=== PATIENT | female | born 1965 | race Caucasian/White ===

== ENCOUNTER 2024-06-09 11:20 | Emergency (ER) | payer MEDICAID, SELFPAY ==
[2024-06-09 11:35] VITALS: BP 187/125; PULSE 70; RESP 18; TEMP 36.5; O2SAT 96; BMI 29.6
--- NOTE | 2024-06-09 11:46 | PD.EDRME ---
Rapid Medical Screening Exam RME Arrival date/time: 06/09/24 11:20 58-year-old female with history of hypertension on multiple medications presents to the emergency department today stating she was at her primary care doctor today and they referred her to the ER for elevated blood pressure. Patient reports no headache no dizziness no chest pain or shortness of breath Chief Complaint: General Adult/Misc Complain Vital signs: Vital Signs Temperature 97.7 F 06/09/24 11:35 Pulse Rate 70 06/09/24 11:35 Respiratory Rate 18 06/09/24 11:35 Blood Pressure 187/125 H 06/09/24 11:35 Pulse Oximetry (%) 96 06/09/24 11:35 Oxygen Delivery Method Room Air 06/09/24 11:35
[2024-06-09 11:50] VITALS: BP 187/125; PULSE 70
[2024-06-09] MEDS: NIFEdipine 10 MG CAPSULE 20 MG PO (11:50)
[2024-06-09 12:31] LABS: Basophils # (Auto) 0.1 Thou/mm3 (0.0-0.2); Basophils % (Auto) 1 % (0-2.5); Eosinophils # (Auto) 0.1 Thou/mm3 (0.0-0.5); Eosinophils % (Auto) 2 % (0-10); Hematocrit 47.2 % (36.0-46.0); Hemoglobin 15.6 g/dL (12.0-16.0); Immature Granulocytes % (Auto) 0 % (0-0); Immature Granulocytes Auto 0.03 Thou/mm3 (0.00-0.00); Lymphocytes # (Auto) 1.9 Thou/mm3 (1.0-4.8); Lymphocytes % (Auto) 23 % (10-50); Mean Corpuscular HGB Conc 33.1 g/dl (31.0-37.0); Mean Corpuscular Hemoglobin 28.9 pg (25.0-35.0); Mean Corpuscular Volume 87 fL (80-100); Monocytes # (Auto) 0.7 Thou/mm3 (0.0-0.8); Monocytes % (Auto) 9 % (0-12); Neutrophils # (Auto) 5.2 Thou/mm3 (1.8-7.7); Neutrophils % (Auto) 65 % (37-80); Nucleated Red Blood Cell % 0 /100 WBC (0); Platelet Count 242 Thou/mm3 (140-440); RDW Standard Deviation 39.4 fL (36.4-46.3); White Blood Count 8.1 Thou/mm3 (3.6-11.0)
[2024-06-09 12:45] VITALS: BP 111/71
[2024-06-09 12:50] LABS: Alanine Aminotransferase 17 U/L (10-49); Albumin, Serum 4.5 gm/dL (3.4-4.8); Albumin/Globulin Ratio 1.7 (1.2-2.2); Alkaline Phosphatase 116 U/L (46-116); Anion Gap 10 (7-16); Aspartate Amino Transferase 17 U/L (0-34); BUN/Creatinine Ratio 20 Ratio (12-20); Bilirubin,Total 0.5 mg/dL (0.3-1.2); Blood Urea Nitrogen 18 mg/dL (9-23); Calcium 9.7 mg/dL (8.3-10.6); Calcium (Corrected) 9.7 mg/dL (8.5-10.1); Carbon Dioxide 27.1 mMol/L (20.0-31.0); Chloride 101 mMol/L (98-107); Creatinine (Component) 0.9 mg/dL (0.6-1.3); Estimated Creatinine Clearance 72.3 mL/min (>60); Globulin 2.6 gm/dL (2.3-3.5); Glucose 112 mg/dL (74-106); Osmolality,Calculated 278 (275-295); Potassium 3.7 mMol/L (3.4-5.1); Sodium 138 mMol/L (136-145); Total Protein 7.1 gm/dL (5.7-8.2); eGFR > 60 See Note
--- NOTE | 2024-06-09 14:07 | EDNOTE_ITS ---
ED General RME/HPI General Chief complaint: General Adult/Misc Complain Stated complaint: SENT BY PRIMARY FOR HTN Time Seen by Provider: 06/09/24 12:52 Arrival date/time: 06/09/24 11:20 58-year-old female with history of hypertension on multiple medications presents to the emergency department today stating she was at her primary care doctor today and they referred her to the ER for elevated blood pressure. Patient reports no headache no dizziness no chest pain or shortness of breath Limitations: no limitations RME / HPI RME / HPI narrative: 06/09/24 11:20 58-year-old female with history of hypertension on multiple medications presents to the emergency department today stating she was at her primary care doctor today and they referred her to the ER for elevated blood pressure. Patient reports no headache no dizziness no chest pain or shortness of breath Related Data Home Medications ?Medication ?Instructions ?Recorded ?Confirmed carvedilol 12.5 mg tablet 25 mg PO DAILY 08/01/2102/21 gabapentin 300 mg capsule 300 mg PO TID PRN Pain 08/0103/12/22 Previous Rx's ?Medication ?Instructions ?Recorded pantoprazole 40 mg tablet,delayed 40 mg PO BID #60 tab s 03/13/22 release (Protonix) Allergies Allergy/AdvReac Type Severity Reaction Status Date / Time ibuprofen AdvReac Severe DUE TO Verified 06/09/24 11:23 HTN,BREAST CA Review of Systems Review of Systems Systems Reviewed: All systems reviewed, normal except as documented Constitutional Constitutional: Reports system reviewed and no additional complaints, except as documented, Denies fever(s) and Denies headache(s) Eyes Eyes: Reports system reviewed and no additional complaints, except as documented and Denies blurry vision ENT Ears, Nose, Mouth, and Throat: Reports system reviewed and no additional complaints, except as documented, Denies headache(s), Denies nasal congestion and Denies nasal discharge Cardiovascular Cardiovascular: Reports system reviewed and no additional complaints, except as documented, Denies chest pain and Denies dyspnea Respiratory Respiratory: Reports system reviewed and no additional complaints, except as documented, Denies chest congestion, Denies cough and Denies dyspnea Gastrointestinal Gastrointestinal: Reports system reviewed and no additional complaints, except as documented and Denies abdominal pain Integumentary/Breasts Skin/Breast: Reports system reviewed and no additional complaints, except as documented and Denies rash Neurologic Neurologic: Reports system reviewed and no additional complaints, except as documented, Reports as per HPI and Denies headache(s) Past Medical History Past Medical History NEUROLOGIC: Negative Neurological Disorders or Seizures CARDIAC: Positive Cardiac Disorders and Hypertension; Negative Congestive Heart Failure RESPIRATORY: Positive Tuberculosis; Negative Chronic Obstructive Pulmonary Disease (COPD), Asthma or Sleep Apnea GASTROINTESTINAL: Positive Gastrointestinal Disorders, Rosa's Esophagus and Gastroesophageal Reflux Disease GENITOURINARY: Negative Genitourinary Disorders or Renal Disease REPRODUCTIVE: Positive Breast Cancer (Left. Lymph nodes removed) and Previous Pregnancies MUSCULOSKELETAL: Positive Musculoskeletal Disorders (Right BKA) and Arthritis ENDOCRINE: Negative Diabetes Mellitus Type 1 or Diabetes Mellitus Type 2 HEMATOLOGIC: Negative Blood Disorders or Sickle Cell Disease OTHER HISTORY: Positive Chicken Pox and Breast Cancer (Left. Lymph nodes removed); Negative Autoimmune Disease, Blood Transfusions or Anesthesia Reactions Surgical History SURGICAL: Positive Amputation (RT BKA), Open Reduction Internal Fixation, Lumpectomy (Left breast), Hysterectomy (Left 2nd toe) and Tubal Ligation Social History SMOKING STATUS: Never smoker ED Exam General Limitations: Present no limitations General appearance: Present alert and in no apparent distress Head Head exam: Present atraumatic Eye Eye exam: Present normal appearance, PERRL and EOMI ENT ENT exam: Present normal exam, normal oropharynx and mucous membranes moist Neck Neck exam: Present normal inspection, full ROM and trachea midline Chest Chest inspection: Present normal inspection and symmetric chest wall rise Respiratory Respiratory exam: Present normal lung sounds bilaterally Cardiovascular Cardiovascular exam: Present regular rate, normal rhythm and normal heart sounds Abdominal Exam Abdominal exam: Present soft and normal bowel sounds Extremities Exam Extremities exam: Present normal inspection and full ROM Back Exam Back exam: Present normal inspection and full ROM Neurological Exam Neurological exam: Present alert, oriented X3 and CN II-XII intact Psychiatric Psychiatric exam: Present normal affect and normal mood Skin Skin exam: Present warm, dry, intact and normal color Course Quality Measures none Orders Category Date Time Status CBC Stat Lab 06/09/24 11:56 Completed CMP [Comprehensive Metabolic Panel] Stat Lab 06/09/24 11:56 Completed NIFEdipine [Procardia] Med 06/09/24 11:43 Discontinued 20 mg PO X1 ONE Vital Signs Vital signs: Vital Signs Temperature 97.7 F 06/09/24 11:35 Pulse Rate 70 06/09/24 11:35 Respiratory Rate 18 06/09/24 11:35 Blood Pressure 187/125 H 06/09/24 11:35 Pulse Oximetry (%) 96 06/09/24 11:35 Oxygen Delivery Method Room Air 06/09/24 11:35 O2 saturation 96% on room air within normal limits MDM Patient data External records reviewed:: [facility] previous records Clinical information provided by:: patient Social determinants that could affect healthcare access:: none Patient has the following chronic illnesses:: None How is presenting disease/condition affected by chronic disease/condition?: no chronic disease Evaluation data The following diagnostics were reviewed and interpreted by me:: lab results Lab and/or radiology exams considered but not ordered:: Lab Interpretation Summary: Reviewed by me Medications Medications considered but not ordered:: Given Medication administrations:: Medication Administration History Discontinued Medications Nifedipine (Nifedipine 10 Mg Capsule) 20 mg PO X1 ONE Stop: 06/09/24 11:44 Last Admin: 06/09/24 11:50 Dose: 20 mg Documented By: DB Given Consultations Consultation(s) initiated? (list below): No Diagnosis Differential Diagnosis ED Complaint MDM: Hypertension, asymptomatic hypertension Most likely diagnosis given after review of the tests above:: Asymptomatic hypertension Admission Indicated Admission indicated?: not indicated Explain why admission is indicated or not indicated:: No criteria Admission Request Was there a request for admission?: No Disposition Plan Disposition Plan: Discharge Discharge Attestation Discharge Attestation: The patient and all family members were given an opportunity to ask questions and understood the discharge instructions. Discharge instructions specifically effects, indications for sooner follow up or return to the emergency department, and the expected course of current diagnosis. Patient condition: Stable Medical Decision Making MDM Narrative MDM Narrative: 58-year-old female with history of hypertension on multiple medications presents to the emergency department today stating she was at her primary care doctor today and they referred her to the ER for elevated blood pressure. Patient reports no headache no dizziness no chest pain or shortness of breath On exam patient well-appearing patient does not appear ill or toxic patient does not appear in acute distress Lab work obtained and is unremarkable Patient was given Procardia here in the emergency department patient's blood pressure is now normal At time reevaluation patient reports that she feels well has no chest pain or shortness of breath no headache dizziness or weakness Patient walks with steady gait Patient discharged home in no distress to follow-up with primary care doctor in the next 24 to 48 hours and for any worsening symptoms to return to the ER immediately Differential Diagnosis Differential Diagnosis: Hypertension, asymptomatic hypertension Medical Records Medical records reviewed: Yes I reviewed the patient's medical records. Lab Data Lab results reviewed: Yes I reviewed the patient's lab results. 06/09/24 11:56 06/09/24 11:56 Labs: Lab Results 06/09/24 Range/Units 11:56 WBC 8.1 (3.6-11.0) Thou/mm3 RBC 5.40 H (4.00-5.20) Miln/mm3 Hgb 15.6 (12.0-16.0) g/dL Hct 47.2 H (36.0-46.0) % MCV 87 (80-100) fL MCH 28.9 (25.0-35.0) pg MCHC 33.1 (31.0-37.0) g/dl RDW Std Deviation 39.4 (36.4-46.3) fL Plt Count 242 (140-440) Thou/mm3 Neut % (Auto) 65 (37-80) % Lymph % (Auto) 23 (10-50) % [place] % (Auto) 9 (0-12) % Eos % (Auto) 2 (0-10) % Baso % (Auto) 1 (0-2.5) % Neut # (Auto) 5.2 (1.8-7.7) Thou/mm3 Lymph # (Auto) 1.9 (1.0-4.8) Thou/mm3 [place] # (Auto) 0.7 (0.0-0.8) Thou/mm3 Eos # (Auto) 0.1 (0.0-0.5) Thou/mm3 Baso # (Auto) 0.1 (0.0-0.2) Thou/mm3 Immature Gran # (Auto) 0.03 H (0.00-0.00) Thou/mm3 Absolute Nucleated RBC 0.00 (0.00-0.00) Thou/mm3 Immature Gran % 0 (0-0) % Nucleated RBC % 0 (0) /100 WBC Sodium 138 (136-145) mMol/L Potassium 3.7 (3.4-5.1) mMol/L Chloride 101 (98-107) mMol/L Carbon Dioxide 27.1 (20.0-31.0) mMol/L Anion Gap 10 (7-16) BUN 18 (9-23) mg/dL Creatinine 0.9 (0.6-1.3) mg/dL Estim Creat Clear Calc 72.3 (>60) mL/min eGFR > 60 (60 - ) See Note BUN/Creatinine Ratio 20 (12-20) Ratio Glucose 112 H (74-106) mg/dL Calculated Osmolality 278 (275-295) Calcium 9.7 (8.3-10.6) mg/dL Corrected Calcium 9.7 (8.5-10.1) mg/dL Total Bilirubin 0.5 (0.3-1.2) mg/dL AST 17 (0-34) U/L ALT 17 (10-49) U/L Alkaline Phosphatase 116 (46-116) U/L Total Protein 7.1 (5.7-8.2) gm/dL Albumin 4.5 (3.4-4.8) gm/dL Globulin 2.6 (2.3-3.5) gm/dL Albumin/Globulin Ratio 1.7 (1.2-2.2) Discharge Plan Plan Patient Disposition: HOME (Self Care) Disposition Comment: Stable Prescriptions/Referrals Prescriptions/Med Rec: No Action carvedilol 12.5 mg tablet 25 mg PO DAILY Patient Comments: TAKE 1 TABLET BY MOUTH TWICE A DAY WITH FOOD FOR 90 DAYS gabapentin 300 mg capsule 300 mg PO TID PRN (Reason: Pain) Patient Comments: TAKE 1 CAPSULE BY MOUTH TWICE A DAY pantoprazole [Protonix] 40 mg Tablet,Delayed Release (Dr/Ec) 40 mg PO BID Qty: 60 2RF Rx Instructions: take 1 tablet by mouth twice daily Referrals: Rory Lima MD [Primary Care Provider] - In 1 week Problem List Clinical Impression: Hypertension, Asymptomatic hypertension Patient/Caregiver Discharge Instructions Education Materials: ED High Blood Pressure ... Additional Instructions: Please follow up with your primary care doctor in the next 24-48hrs for any worsening symptoms return here immediately The medication you were given in the ER is Procardia Print Language: Turkish Stand Alone Forms: Lavonne Award Info., Patient Portal Info Letter PA/[employer] Supervising Physician PA/[employer] Supervising Physician: Dr Magaña
== END 2024-06-09 14:19 | disposition home or self-care (01) ==
PROVIDERS: Nurse Practitioner Primary Care; Emergency Provider Emergency Medicine; PCP Internal Medicine
DX: I10 Essential (primary) hypertension (principal)
CPT/HCPCS: 36415; 80053; 85025; 99283; A9270

== ENCOUNTER 2024-10-25 11:09 | Emergency (ER) | payer MEDICAID, SELFPAY ==
[2024-10-25] VITALS (10 sets, daily range): BP systolic 117–232; BP diastolic 68–127; PULSE 60–98; RESP 14–19; TEMP 36.6–37; O2SAT 95–99; BMI 29.7
--- NOTE | 2024-10-25 | XR_ITS ---
Examination: MRI lumbar spine without contrast Date and time of exam: October 25, [address] lumbar spine October 25, 2024 INDICATIONS: Low back pain radiating down the right leg after fall 5 days ago Technique: Multiple MRI axial and sagittal sections lumbar spine. Sagittal T2-weighted images, TR 3500, TE 118 T1 weighted transverse sections, TR 688 T8.5, T2-weighted sagittal sections T1 weighted sagittal sections TR 621, TE 30 T2 axial sections, TR 4, 190, TE 84. Findings: Acute compression fracture L3 vertebral body, depression superior endplate, reduction in height approximately 40% Retropulsion of the posterior margin of this vertebral body 11 mm impinging upon the L4 right nerve root Remaining lumbar vertebral bodies intact Normal position conus medullaris IMPRESSION: Acute compression fracture L3 vertebral body, prominent retropulsion of the posterior margin of this vertebral body 11 mm impinging upon the right L4 nerve root
--- NOTE | 2024-10-25 11:35 | EKG_ITS ---
[facility] Test Date: 2024-10-25 Pat Name: BENNIE LEE Department: Room: - Gender: Female [employer]: : [id number] Requested By: Jessica Mina Order Number: [id number] Reading MD: Jessica Mina Measurements Intervals Howard Rate: 67 P: -7 NH: 100 QRS: 55 QRSD: 97 T: 71 QT: 436 QTc: 463 Interpretive Statements SINUS RHYTHM WITH SHORT NH INTERVAL LEFT VENTRICULAR HYPERTROPHY AND ST-T CHANGE [VOLTAGE CRITERIA PLUS ST/T ABNORMALITY] Compared to ECG 03/12/2022 07:19:47 Short NH interval now present ST (T wave) deviation still present /store/S0/[id number]
--- NOTE | 2024-10-25 11:44 | PD.EDBACK ---
ED Back Injury Pain RME/HPI General Chief Complaint: Back Pain/Injury Stated Complaint: back pain Time Seen by Provider: 10/25/24 11:23 Arrival date/time: 10/25/24 11:09 RME / HPI RME / HPI Narrative: 58 year old female presents to the ED BIBA from home for evaluation of lower back pain that radiates down her right leg after ground level fall 5 days ago. States she had been drinking 5 days ago and while moving a chair up a ramp into her home, she lost her footing and fell. States she doesn't recall much on what side she landed on during her fall. Reportedly was evaluated at [facility] the day she fell and had imaging performed showing no fractures and discharged home. States her pain has gradually worsened, now rating as severe. Aggravated with movements and minimally improved with immobilization. Denies any new falls/injuries. No other associated symptoms or complaints reported. Related Data Home Medications ?Medication ?Instructions ?Recorded ?Confirmed carvedilol 12.5 mg tablet 25 mg PO DAILY 08/01/21 03/13/22 gabapentin 300 mg capsule 300 mg PO TID PRN Pain 08/01/21 03/12/22 Previous Rx's ?Medication ?Instructions ?Recorded pantoprazole 40 mg tablet,delayed 40 mg PO BID #60 tabs 03/13/22 release (Protonix) Allergies Allergy/AdvReac Type Severity Reaction Status Date / Time ibuprofen AdvReac Severe DUE TO Verified 10/25/24 11:15 HTN,BREAST CA Review of Systems Review of Systems Systems Reviewed: All systems reviewed, normal except as documented Past Medical History Past Medical History CARDIAC: Positive Cardiac Disorders and Hypertension RESPIRATORY: Positive Tuberculosis GASTROINTESTINAL: Positive Gastrointestinal Disorders, Rosa's Esophagus and Gastroesophageal Reflux Disease REPRODUCTIVE: Positive Breast Cancer and Previous Pregnancies MUSCULOSKELETAL: Positive Musculoskeletal Disorders and Arthritis OTHER HISTORY: Positive Chicken Pox and Breast Cancer Surgical History SURGICAL: Positive Amputation, Open Reduction Internal Fixation, Lumpectomy, Hysterectomy and Tubal Ligation Social History SMOKING STATUS: Never smoker ED Exam Narrative Physical exam: GENERAL APPEARANCE: alert and oriented x 4, well-developed, well-nourished, no acute distress HEENT: Normocephalic, atraumatic; pupils equal, round, reactive to light; EOMI; mucous membranes pink, moist; oropharynx clear NECK: Supple LUNGS: CTABL; no wheezes, no rales, no rhonchi HEART: Regular rate, regular rhythm; normal S1, S2; no murmurs ABDOMEN: non distended; normal BS; soft, no tenderness, no guarding, no rebound; no masses, no organomegaly, no hernia BACK: no CVA tenderness EXTREMITIES: Right BKA; no edema NEUROLOGIC: awake; alert and oriented x4; cranial nerves II-XII grossly intact; no focal sensory or motor deficits PSYCHIATRIC: appropriate mood and affect SKIN: warm, dry, normal color; no rashes Course Course Course Narrative: 1650: RN reports patient was able to stand though complains of pain. 1706: I spoke with transfer nurse and aware of request to consult with neurosurgeon at [facility]. 1740: I spoke with neurosurgeon Dr. Lozano at [facility]. Discussed patients PMHx, HPI, ED course, exam findings, labs, and radiology results. He recommends an MRI of lumbar spine to rule out ligament injury. States if MRI is not able to be performed, can be discharged home with TLSO brace. States patient can follow up with neurosurgeon on an outpatient basis. 1800: Patient signed out to Dr. Dillon pending MRI and final disposition. Quality Measures none Orders Category Date Time Status It Infrastructure Project Manager NOW Care 10/25/24 11:35 Active EKG (ED ONLY) *Do not use* NOW Care 10/25/24 11:35 Completed MRI Screening NOW Care 10/25/24 17:[address] lumbar spine wo con Stat Exams 10/25/24 11:[address] pelvis wo con Stat Exams 10/25/24 11:44 Completed EKG (ED Only) Stat Exams 10/25/24 11:35 Draft MR lumbar spine wo con Stat Exams 10/25/24 Ordered B-Type Natriuretic Peptide Stat Lab 10/25/24 11:56 Completed CBC Stat Lab 10/25/24 11:56 Completed Comprehensive Metabolic Panel Stat Lab 10/25/24 11:56 Completed Magnesium Stat Lab 10/25/24 11:56 Completed Troponin I Stat Lab 10/25/24 11:56 Completed HYDROmorphone INJ [Dilaudid Inj] Med 10/25/24 13:55 Discontinued 1 mg IVP X1 ONE Morphine Inj Med 10/25/24 11:40 Discontinued 5 mg IVP X1 ONE Morphine Inj Med 10/25/24 13:04 Discontinued 5 mg IVP X1 ONE Ondansetron Inj [Zofran Inj] Med 10/25/24 11:40 Discontinued 4 mg IVP X1 ONE Ondansetron Inj [Zofran Inj] Med 10/25/24 13:04 Discontinued 4 mg IVP X1 ONE hydrALAZINE INJ [Apresoline Inj] Med 10/25/24 11:33 Discontinued 10 mg IVP X1 ONE hydrALAZINE INJ [Apresoline Inj] Med 10/25/24 13:55 Discontinued 10 mg IVP X1 ONE Reevaluation(s) Reevaluation #1: Patient still complains of pain to her back though improved after pain medications. We reviewed all the results, analysis, and treatment plans. Time: 16:28 Vital Signs Vital signs: Vital Signs Temperature 97.9 F 10/25/24 11:10 Pulse Rate 62 10/25/24 11:10 Respiratory Rate 15 10/25/24 11:10 Blood Pressure 232/94 H 10/25/24 11:10 Pulse Oximetry (%) 96 10/25/24 11:10 Pulse ox is 96% on room air which is adequate. Back Pain / Injury MDM Narrative MDM Narrative:: Jayleen Urrutia am scribing for and in the presence of Dr. Tierney. Patient data External records reviewed:: [facility] previous records (I reviewed ED visit on 06/09/2024 ) and EMS form Clinical information provided by:: patient and EMS Social determinants that could affect healthcare access:: none Patient has the following chronic illnesses:: Hypertension How is presenting disease/condition affected by chronic disease/condition?: exacerbated by Evaluation data The following diagnostics were reviewed and interpreted by me:: lab results, radiology exam(s) and EKG tracing(s) (10/25/2024 @ 11:36 AM. Sinus rhythm with short MT interval, 67, mild artifact, slight ST depression in V3 through V6 and lead II. ) Lab and/or radiology exams considered but not ordered:: None Interpretation Summary: Ordering Physician: Jessica Tierney MD Date of Service: 10/25/24 Procedure(s): CT lumbar spine wo con Accession Number(s): [id number] cc: Vic Ye MD; Emanuel Brito MD; Jessica Tierney MD~ Examination: CT lumbar spine, without contrast. 2-D sagittal reconstructions. 2-D coronal reconstructions. 3-D reconstructions. Date and time of exam:October 25, 2024 1443 hours INDICATIONS: Patient fell 6 days ago with injury to lower back, lower back pain CTDI: vol (mGy):36.1 DLP: (mGycm):825 Technique: Multiple 1.25 mm axial sections of the lumbar spine without intravenous contrast have been obtained. 2-D sagittal and coronal reconstructions have been obtained. 3-D reconstructions have been obtained. Low dose protocols were performed. One or more of the following dose reduction techniques were used; automated exposure control, adjustment of the mA and/or KV according to patient size, use of iterative reconstruction technique. Findings: Severe osteopenia Acute compression fracture L3 vertebral body, depression inferior endplate, reduction in height 40% Retropulsion of the posterior margin of this vertebral body 8 mm impinging upon the cauda equina Pedicles and transverse processes intact No focal lumbar disc protrusion IMPRESSION: Acute compression fracture L3 vertebral body with retropulsion of the posterior margin of this vertebral body producing significant spinal stenosis Dictated By: Emanuel Brito MD Signed By: <Electronically signed by Emanuel Brito MD in OV> 10/25/24 1500 Ordering Physician: Jessica Tierney MD Date of Service: 10/25/24 Procedure(s): CT pelvis wo [facility] Accession Number(s): [id number] cc: Vic Ye MD; Emanuel Brito MD; Jessica Tierney MD~ Examination: CT pelvis without intravenous contrast. 2-D sagittal and coronal reconstructions. Date and time of exam:October 25, 2024, 1443 hours INDICATIONS: Patient fell today with injury of the right hip, right hip pain CTDI: vol (mGy) :9.98 DLP: (mGycm) : 310 Technique: Multiple 3 mm axial sections of the pelvis have been obtained with the 64 slice high resolution scanner. 2-D sagittal and coronal reconstructions. Low dose protocols were performed. One or more of the following dose reduction techniques were used; automated exposure control, adjustment of the mA and/or KV according to patient size, use of iterative reconstruction technique. Findings: No pelvic hematoma Severe osteopenia Right hip intact Moderate to advanced bilateral hip osteoarthritis Bones of the pelvis intact IMPRESSION: No acute hip or pelvic fracture Given the severe osteopenia, recommend 1 day follow-up AP plain film of the pelvis as clinically warranted Dictated By: Emanuel Brito MD Signed By: <Electronically signed by Emanuel Brito MD in OV> 10/25/24 1509 Medications / Prescriptions Medications or Prescriptions considered but not ordered:: None Medication administrations:: Medication Administration History Discontinued Medications Hydralazine HCl (Hydralazine Inj 20 Mg/Ml Vial) 10 mg IVP X1 ONE Stop: 10/25/24 11:34 Last Admin: 10/25/24 11:48 Dose: 10 mg Documented By: MOIZ Hydralazine HCl (Hydralazine Inj 20 Mg/Ml Vial) 10 mg IVP X1 ONE Stop: 10/25/24 13:56 Last Admin: 10/25/24 14:19 Dose: 10 mg Documented By: AA Hydromorphone HCl (Hydromorphone Inj 2 Mg/Ml Vial) 1 mg IVP X1 ONE Stop: 10/25/24 13:56 Last Admin: 10/25/24 16:04 Dose: 1 mg Documented By: RD Morphine Sulfate (Morphine Sulf Inj 10 Mg/Ml Vial) 5 mg IVP X1 ONE Stop: 10/25/24 11:41 Last Admin: 10/25/24 11:50 Dose: 5 mg Documented By: GM Morphine Sulfate (Morphine Sulf Inj 10 Mg/Ml Vial) 5 mg IVP X1 ONE Stop: 10/25/24 13:05 Last Admin: 10/25/24 14:15 Dose: 5 mg Documented By: AA Ondansetron HCl (Ondansetron Inj 2 Mg/Ml Inj 2 Ml) 4 mg IVP X1 ONE Stop: 10/25/24 11:41 Last Admin: 10/25/24 11:48 Dose: 4 mg Documented By: GM Ondansetron HCl (Ondansetron Inj 2 Mg/Ml Inj 2 Ml) 4 mg IVP X1 ONE Stop: 10/25/24 13:05 Last Admin: 10/25/24 14:13 Dose: 4 mg Documented By: AHMET See above Consultations Consultation(s) initiated? (list below): Yes Consultation #1 (Physician, Specialty, Details): As noted above Diagnosis Most likely diagnosis given after review of the tests above:: L3 compression fracture Admission Indicated Admission indicated?: not indicated Explain why admission is indicated or not indicated:: Signed out pending MRI and final disposition. Admission Request Was there a request for admission?: No Disposition Plan Disposition Plan: other (specify) (Signed out to Dr. Dillon. ) Critical Care Time Critical Care Time Critical Care Time: No Discharge Plan Prescriptions/Referrals Prescriptions/Med Rec: No Action carvedilol 12.5 mg tablet 25 mg PO DAILY Patient Comments: TAKE 1 TABLET BY MOUTH TWICE A DAY WITH FOOD FOR 90 DAYS gabapentin 300 mg capsule 300 mg PO TID PRN (Reason: Pain) Patient Comments: TAKE 1 CAPSULE BY MOUTH TWICE A DAY pantoprazole [Protonix] 40 mg Tablet,Delayed Release (Dr/Ec) 40 mg PO BID Qty: 60 2RF Rx Instructions: take 1 tablet by mouth twice daily Referrals: Vic Ye MD [Primary Care Provider] - In 1 week Problem List Clinical Impression: Closed compression fracture of L3 vertebra, Spinal stenosis of lumbar region Patient/Caregiver Discharge Instructions Education Materials: Back Fracture (Compression Fracture) Print Language: Bengali
[2024-10-25] MEDS: hydrALAZINE INJ 20 MG/ML VIAL 10 MG IVP ×2 (11:48→14:19)
[2024-10-25] MEDS: ONDANSETRON INJ 2 MG/ML INJ 2 ML 4 MG IVP ×2 (11:48→14:13)
[2024-10-25] MEDS: MORPHINE SULF INJ 10 MG/ML VIAL 5 MG IVP ×2 (11:50→14:15)
[2024-10-25 12:51] LABS: B-Type Natriuretic Peptide 262 pg/mL (0-100)
[2024-10-25 12:53] LABS: Alanine Aminotransferase 16 U/L (10-49); Albumin, Serum 4.9 gm/dL (3.4-4.8); Albumin/Globulin Ratio 1.8 (1.2-2.2); Alkaline Phosphatase 145 U/L (46-116); Anion Gap 12 (7-16); Aspartate Amino Transferase 18 U/L (0-34); BUN/Creatinine Ratio 19 Ratio (12-20); Bilirubin,Total 0.9 mg/dL (0.3-1.2); Blood Urea Nitrogen 15 mg/dL (9-23); Calcium 9.6 mg/dL (8.3-10.6); Calcium (Corrected) 9.6 mg/dL (8.5-10.1); Carbon Dioxide 28.2 mMol/L (20.0-31.0); Chloride 101 mMol/L (98-107); Creatinine (Component) 0.8 mg/dL (0.6-1.3); Estimated Creatinine Clearance 84.3 mL/min (>60); Globulin 2.7 gm/dL (2.3-3.5); Glucose 109 mg/dL (74-106); Magnesium 1.6 mg/dL (1.6-2.6); Osmolality,Calculated 283 (275-295); Potassium 3.7 mMol/L (3.4-5.1); Sodium 141 mMol/L (136-145); Total Protein 7.6 gm/dL (5.7-8.2); Troponin I < 0.020 ng/mL (0.0-0.045); eGFR > 60 See Note
[2024-10-25 13:43] LABS: Basophils # (Auto) 0.1 Thou/mm3 (0.0-0.2); Basophils % (Auto) 1 % (0-2.5); Eosinophils # (Auto) 0.1 Thou/mm3 (0.0-0.5); Eosinophils % (Auto) 1 % (0-10); Hematocrit 47.8 % (36.0-46.0); Hemoglobin 16.0 g/dL (12.0-16.0); Immature Granulocytes Auto 0.03 Thou/mm3 (0.00-0.00); Lymphocytes # (Auto) 1.7 Thou/mm3 (1.0-4.8); Lymphocytes % (Auto) 20 % (10-50); Mean Corpuscular HGB Conc 33.5 g/dl (31.0-37.0); Mean Corpuscular Hemoglobin 29.2 pg (25.0-35.0); Mean Corpuscular Volume 87 fL (80-100); Monocytes # (Auto) 0.5 Thou/mm3 (0.0-0.8); Monocytes % (Auto) 6 % (0-12); Neutrophils # (Auto) 6.4 Thou/mm3 (1.8-7.7); Neutrophils % (Auto) 73 % (37-80); Nucleated Red Blood Cell # 0.00 Thou/mm3 (0.00-0.00); Nucleated Red Blood Cell % 0 /100 WBC (0); Platelet Count 226 Thou/mm3 (140-440); RDW Standard Deviation 39.5 fL (36.4-46.3); Red Blood Count 5.48 Miln/mm3 (4.00-5.20); White Blood Count 8.8 Thou/mm3 (3.6-11.0)
[2024-10-25] MEDS: HYDROmorphone INJ 2 MG/ML VIAL 1 MG IVP ×2 (16:04→21:51)
--- NOTE | 2024-10-25 17:22 | PC.CC ---
Addendum entered by Lisa Parada RN 10/25/24 17:58: 1749: spoke to Dr. Tierney and asked if she would like another facility, she stated she spoke to the oncall neurosurgeon at [facility] already and to cancel transfer request. Asked her to cancel order, she stated verbal understanding. Original Note: 5551: received call form Dr. Tierney for possible transfer for neurosurgery. Dr tierney stated she would like to consult with the neuro surgeon at [facility] for recs. Sent clinicals to [facility]. Spoke to [place], she stated she will wait for the clinicals and call me back.
--- NOTE | 2024-10-25 18:14 | PD.EDADDENDU ---
Emergency Room Addendum <Violetta Ye - Last Filed: 10/25/24 21:00> Addendum Narrative: I took over the care from previous shift physician, Dr. Tierney, at 6 PM on 10/25/24. See previous notes for complete H & P and ED course. I reviewed all diagnostic test results. Diagnoses include: Closed compression fracture of L3 vertebra, Spinal stenosis of lumbar region. I discussed the case with Dr. Castro, hospitalist, and Dr. Whitfield, neurosurgeon, at [facility]. About the presentation and exam and diagnostics and treatments here. And need of further care in the hospital there. Will accept the patient. Karthik Dillon MD <Karthik Dillon MD - Last Filed: 10/26/24 01:26> Addendum Narrative: I took over the care from previous shift physician, Dr. Tierney, at 6 PM on 10/25/24. See previous notes for complete H & P and ED course. I reviewed all diagnostic test results. Diagnoses include: L3 fracture with prominent retropulsion. I discussed the case with Dr. Castro, hospitalist, and Dr. Whitfield, neurosurgeon, at Counts include 234 beds at the [facility]. About the presentation and exam and diagnostics and treatments here. And need of further care in the hospital there. Will accept the patient. Karthik Dillon MD
--- NOTE | 2024-10-25 20:23 | PC.NURSE ---
THIS RN INFORMED Michael STEEN OF PATIENTS BP 187/127AND PATIENT COMMENT PER TAMMY MY BLOOD PRESSURE IS NORMALLY 300/200 SO THIS IS LOW FOR ME. .
== END 2024-10-25 23:12 | disposition short-term general hospital (02) ==
PROVIDERS: Emergency Medicine; Emergency Provider Emergency Medicine; PCP Family Medicine
DX: S32.039A Unspecified fracture of third lumbar vertebra, initial encounter for closed fracture (principal); S79.911A Unspecified injury of right hip, initial encounter; M48.061 Spinal stenosis, lumbar region without neurogenic claudication; R94.31 Abnormal electrocardiogram [ECG] [EKG]; W01.0XXA Fall on same level from slipping, tripping and stumbling without subsequent striking against object, initial encounter; Y93.89 Activity, other specified; Y92.009 Unspecified place in unspecified non-institutional (private) residence as the place of occurrence of the external cause; Z75.1 Person awaiting admission to adequate facility elsewhere
CPT/HCPCS: 36415; 72131; 72148; 72192; 80053; 83735; 83880; 84484; 85025; 93005; 96374; 96375; 96376; 99283; J0360; J1171; J2270; J2405